=== PATIENT | male | born 1955 | race Caucasian/White ===

== ENCOUNTER 2017-10-30 21:22 | Observation (INO) | payer OTHER ==
[~2017-10-30] VITALS: Ht 177.8 cm; Wt 86.5 kg
--- NOTE | ~2017-10-30 | EKG ---
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
--- NOTE | ~2017-10-30 | EKG ---
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
--- NOTE | ~2017-10-30 | H ---
[facility] [place] [address] [place] [address] HISTORY AND PHYSICAL Name: MAGED WADSWORTH Room #: 444-P [facility] M.R.#: [id number] Admission: 10/31/17 Attend Phys: Kiara Abernathy MD Discharge: Date of : 55 Report #: [id number] THIS REPORT FOR: //name// CC: BÁRBARACEE GENTILEGAVINO Abernathy DATE OF SERVICE: 10/31/2017 ATTENDING PHYSICIAN: Kiara Aleman MD. CHIEF COMPLAINT: Chest pressure with elevated D-dimer. HISTORY OF PRESENT ILLNESS: The patient is a 62-year-old gentleman with known history of knee arthritis, which had progressively gotten worse. The patient had failed conservative treatment and underwent elective left total knee arthroplasty at [facility]. When he was in the inpatient unit, he complained of having chest pressure sensation and mild dizziness while he was sitting by the bedside. He was also noted to have low blood pressure. He was evaluated and a D-dimer was done, which was elevated at around 6.2. The patient was sent to [facility] for evaluation and to rule out pulmonary embolism. CT of the chest done did not reveal any evidence of blood clot. But, while in the ER, the patient developed sudden hypotension and his systolic blood pressure dropped down to 80s. He was given IV fluids of about 2 liters with which he seemed to do better. Since then, the patient has been admitted to the hospital and was monitored and reports that he did well. He rested last night and this morning, he denies having any chest pressure symptoms or any shortness of air. PAST MEDICAL HISTORY: Significant for history of knee arthritis and hypertension. PAST SURGICAL HISTORY: Left knee replacement, which was recent. ALLERGIES: He is not known to be allergic to medication. MEDICATION: He was currently on was the lisinopril 20 mg daily, atorvastatin 40 mg daily, scopolamine patch and Tylenol along with hydrocodone p.r.n. FAMILY HISTORY: Noncontributory. SOCIAL HISTORY: He is . Does not smoke. He does not drink alcohol. REVIEW OF SYSTEMS: He denied having any chest pressure. No nausea or vomiting. No abdominal pain. He does give symptoms of reflux in the past. He denied having any headache, focal weakness or any urinary symptoms. [facility] [address] [place] [address] HISTORY AND PHYSICAL Name: MAGED WADSWORTH Room #: 444-P [facility] Marco.#: [id number] Admission: 10/31/17 Attend Phys: Kiara Abernathy MD Discharge: Date of : 55 Report #: [id number] PHYSICAL EXAMINATION: GENERAL: Pleasant elderly gentleman, was resting in bed, did not appear to be in any acute distress. He was awake, alert, oriented to place and person. He was febrile with a temperature of 36.7, pulse of 80, respiratory rate 20, blood pressure 121/66, oxygen saturation 96% on room air. HEENT: There was no pallor, no icterus. Mucosa was moist. NECK: Supple. LUNGS: Clear to auscultation bilaterally with no wheezing or crackles. HEART: First and second normal. ABDOMEN: Soft, nontender, bowel sounds normally heard. EXTREMITIES: The patient had a left knee dressing and there was no calf swelling or tenderness noted. LABORATORY DATA: On admission showed a lactic acid of 1.9. White cell count was 11, hemoglobin 11.5, hematocrit 32.1 and a platelet count of 191. Segmented neutrophils were 88, lymphocytes were 6 and protime was 10.2, INR 1. Sodium 132, potassium 3.9, chloride of 98, bicarbonate of 24, BUN of 20, creatinine of 1 and glucose of 183. Troponin was less than 0.04. ALT/AST was normal. Alkaline phosphatase was 65. UA was clear. RADIOLOGY: Chest x-ray showed no acute cardiopulmonary disease. A CT of the chest for PE protocol, no evidence of pulmonary embolism or no acute process noted. There were multiple hepatic cysts noted. ASSESSMENT: 1. Left knee arthritis, status post total knee arthroplasty. 2. Chest pressure with elevated D-dimer, negative for pulmonary embolism. 3. Episode of hypotension. 4. History of hypertension. PLAN: To hold the lisinopril. Keep him on IV fluids, monitor him overnight and patient was stable, so patient being transferred back to [facility] for ongoing rehab. He was medically stable to be transferred back to [facility]. By: [phone] Kiara Abernathy MD /nt
[2017-10-30 21:24] VITALS: BP 119/63
[2017-10-30] MEDS ORDERED: ATORVASTATIN CA40 MG PO (21:25)
[2017-10-30] MEDS ORDERED: LISINOPRIL20 MG PO (21:25)
[2017-10-30] MEDS ORDERED: SCOPOLAMINE1 EACH TOP (21:26)
[2017-10-30] MEDS ORDERED: TYLENOL325 MG PO (21:26)
[2017-10-30] MEDS ORDERED: ALUMINUM H320 MG/5 M PO (21:27)
[2017-10-30] MEDS ORDERED: HYDROCODONE-AP1 EAC6 PO (21:28)
[2017-10-30] MEDS ORDERED: BISACODYL SUPP10 MG RECTAL (21:28)
[2017-10-30] MEDS ORDERED: FLEET ENEMA133 ML (21:28)
[2017-10-30] MEDS ORDERED: HYDROCODONE-ACE15 ML PO (21:29)
[2017-10-30] MEDS ORDERED: KETOROLAC30 MG/1 M2 IV (21:30)
[2017-10-30] MEDS ORDERED: MILK OF MA2400 MG/10 PO (21:30)
[2017-10-30] MEDS ORDERED: MORPHINE 110 MG/10 M IM (21:31)
[2017-10-30 21:56] LABS: HEMATOCRIT 32.1 % (42.0-52.0); HEMOGLOBIN 11.5 gm/dL (14.0-18.0); MCHC 35.8 g/dL (28.0-37.0); MCV 89.4 fL (80.0-100.0); PLATELET COUNT 191 thou/uL (150-400); RBC 3.59 mil/uL (4.50-6.00); RDW 12.5 % (10.5-14.5)
[2017-10-30 21:58] LABS: MANUAL DIFF YES
[2017-10-30 22:10] LABS: ANION GAP 10 mmol/L (7-16); BUN 20 mg/dL (7-18); CALCIUM 8.7 mg/dL (8.5-10.1); CHLORIDE 98 mmol/L (98-107); CO2 24 mmol/L (21-32); GLUCOSE 183 mg/dL (74-106); POTASSIUM 3.9 mmol/L (3.5-5.1); SODIUM 132 mmol/L (136-145)
[2017-10-30 22:16] LABS: ABSOLUTE NEUTROPHILS 9.7 thou/uL (1.4-8.2); ANISOCYTOSIS 1+; TOTAL CELL COUNT 100
[2017-10-30 22:18] LABS: ALBUMIN 3.3 g/dL (3.4-5.0); ALKALINE PHOSPHATASE 65 U/L (46-116); SGOT 23 U/L (15-37); SGPT 27 U/L (30-65); TOTAL BILIRUBIN 0.5 mg/dL (<0.1-1.0); TOTAL PROTEIN 6.1 g/dL (6.4-8.2); TROPONIN-I < 0.04 ng/mL (<0.06)
[2017-10-30 22:34] LABS: PROTIME 10.2 Seconds (9.3-11.4)
[2017-10-30 22:40] LABS: URINE BILIRUBIN NEGATIVE (Negative); URINE BLOOD TRACE (Negative); URINE COLOR YELLOW; URINE GLUCOSE-RANDOM* NEGATIVE (Negative); URINE KETONES NEGATIVE (Negative); URINE NITRITE NEGATIVE (Negative); URINE PROTEIN (DIPSTICK) NEGATIVE (Negative); URINE SPECIFIC GRAVITY <= 1.005 (1.005-1.035); URINE UROBILINOGEN 0.2 E.U./dl (0.2-1.0)
[2017-10-30] MEDS ORDERED: PERCOCET PO (22:55)
[2017-10-30] MEDS ORDERED: PHENERGAN25 MG/1 ML IV (22:56)
[2017-10-30] MEDS ORDERED: LAXATIVE5 M1 PO (22:58)
[2017-10-30] MEDS ORDERED: TRAMADOL 50 MG50 MG PO (22:58)
[2017-10-30] MEDS ORDERED: ONDANSETRON4 MG/2 ML IV (22:59)
[2017-10-30] MEDS ORDERED: TEMAZEPAM15 MG PO (22:59)
[2017-10-30] MEDS ORDERED: COLACE100 MG PO (22:59)
[2017-10-30] MEDS ORDERED: CEFAZOLIN2 GM/100 M IV (23:01)
[2017-10-30] MEDS ORDERED: KETOROLAC30 MG/1 ML IV (23:01)
[2017-10-30] MEDS ORDERED: COUMADIN 5 MG TA5 M1 PO (23:08)
[2017-10-31 00:43] VITALS: BP 121/64
[2017-10-31 00:49] VITALS: BP 107/54
[2017-10-31 01:34] VITALS: BP 111/65
[2017-10-31 04:45] VITALS: BP 121/66
[2017-10-31] MEDS ORDERED: HYDROCODON-ACE1 EAC7 PO ×2 (07:54→07:55)
[2017-10-31] MEDS ORDERED: ONDANSETRON HCL4 M1 PO (07:55)
[2017-10-31 08:27] VITALS: BP 110/59
== END 2017-10-31 11:30 ==
LOC: ER 21:22 → EROBS 10-31 00:10 → 4S 10-31 00:54
PROVIDERS: Physician Assistant
DX: R07.89 Other chest pain (principal); R79.1 Abnormal coagulation profile; M13.862 Other specified arthritis, left knee; I95.9 Hypotension, unspecified; I10 Essential (primary) hypertension; Z98.890 Other specified postprocedural states